=== PATIENT | female | born 1975 | race Caucasian/White ===

== ENCOUNTER 2018-04-04 14:18 | Emergency (ER) | payer MEDICAID ==
[~2018-04-04] VITALS: Ht 172.7 cm; Wt 64.3 kg
[2018-04-04] MEDS ORDERED: MONT5TAB14 PO (14:56)
[2018-04-04] MEDS ORDERED: CITA-311 PO (14:56)
[2018-04-04] MEDS ORDERED: ZOLP10TA5 PO (14:56)
[2018-04-04] MEDS ORDERED: ARIP5TAB4 PO (14:56)
[2018-04-04 15:04] LABS: BASOPHILS % (AUTO) 0.3 % (0-1); EOSINOPHILS # (AUTO) 0.1 X10'3 (0-0.9); EOSINOPHILS % (AUTO) 1.8 % (0-6); HEMATOCRIT 45.6 % (35.0-45.0); HEMOGLOBIN 14.9 g/dl (12.0-16.0); LYMPHOCYTES # (AUTO) 1.7 X10'3 (1.1-4.8); LYMPHOCYTES % (AUTO) 28.9 % (21-51); MEAN CORPUSCULAR HEMOGLOBIN 31.1 PG (27.0-31.0); MEAN CORPUSCULAR HGB CONC 32.7 g/dL (33.0-36.5); MEAN CORPUSCULAR VOLUME 95.1 FL (78-98); MEAN PLATELET VOLUME 8.3 FL (7.4-10.4); MONOCYTES # (AUTO) 0.9 X10'3 (0-0.9); MONOCYTES % (AUTO) 14.8 % (2-12); NEUTROPHILS # (AUTO) 3.2 X10'3 (1.8-7.7); NEUTROPHILS % (AUTO) 54.2 % (42-75); PLATELET COUNT 233 X10'3 (140-440); RED BLOOD COUNT 4.79 X10'6 (4.20-5.60); RED CELL DISTRIBUTION WIDTH 13.7 % (11.5-14.5); WHITE BLOOD COUNT 5.9 X10'3 (4.5-11.0)
[2018-04-04 15:08] LABS: CLARITY,URINE SLIGHTLY CLOUDY (Clear); COLOR,URINE STRAW (Yellow); GLUCOSE, URINE NEGATIVE (Neg); KETONES,URINE NEGATIVE (Neg); LEUKOCYTE ESTERASE ,URINE TRACE (Neg); NITRITES, URINE NEGATIVE (Neg); OCCULT BLOOD,URINE MODERATE (Neg); PH,URINE 7.5 (4.8-8.0); PROTEIN,URINE NEGATIVE (Neg); URINE HCG NEGATIVE (NEG); UROBILINOGEN,URINE 0.2 E.U/dL (0.2-1.0)
[2018-04-04] MEDS ORDERED: MONT10TA24 PO (15:08)
[2018-04-04] MEDS ORDERED: ALBU18HF2 IH (15:08)
[2018-04-04] MEDS ORDERED: IBUP-1986 PO (15:08)
[2018-04-04 15:19] LABS: URINE AMPHETAMINE SCREEN NEGATIVE (Neg); URINE BARBITUATE SCREEN NEGATIVE (Neg); URINE BENZODIAZEPINES SCREEN NEGATIVE (Neg); URINE CANNABINOID SCREEN NEGATIVE (Neg); URINE COCAINE SCREEN NEGATIVE (Neg); URINE METHADONE SCREEN NEGATIVE (Neg); URINE OPIATE SCREEN NEGATIVE (Neg); URINE PHENCYCLIDINE SCREEN NEGATIVE (Neg)
[2018-04-04] MEDS ORDERED: LORazepam 0.5 MG tablet PO ONE (15:20)
[2018-04-04] MEDS ORDERED: LORazepam 1 MG tablet PO ONE (15:20)
[2018-04-04 15:21] LABS: ALANINE AMINOTRANSFERASE 23 U/L (12-78); ALBUMIN 4.5 G/DL (3.4-5.0); ALBUMIN/GLOBULIN RATIO 1.2 (1.1-1.5); ALKALINE PHOSPHATASE 40 IU/L (46-116); ANION GAP 9 (8-16); ASPARTATE AMINO TRANSFERASE 21 U/L (10-37); BILIRUBIN,TOTAL 0.2 MG/DL (0.1-1.0); BLOOD UREA NITROGEN 8 MG/DL (7-18); BUN/CREATININE RATIO 12.1 (6.6-38.0); CALCIUM 9.2 MG/DL (8.5-10.1); CHLORIDE 104 MMOL/L (99-107); CREATININE 0.66 MG/DL (0.40-0.90); GLUCOSE 80 MG/DL (70-104); POTASSIUM 3.8 MMOL/L (3.5-5.1); SODIUM 140 MMOL/L (135-145); TOTAL CARBON DIOXIDE 26.9 MMOL/L (24-32); TOTAL PROTEIN 8.4 G/DL (6.4-8.2); eGFR > 90 ML/MIN
[2018-04-04 15:25] LABS: UA COLLECTION TYPE CLN CATCH MIDSTREAM
[2018-04-04 15:27] LABS: BACTERIA,URINE 1+ /HPF (Neg); RBC,URINE 0-2 /HPF (0-2); SQUAMOUS EPITHELIAL CELL,UR MODERATE /LPF (FEW)
[2018-04-04 15:31] LABS: ETHANOL < 0.010 GM/DL (0.0-0.010)
[2018-04-04] MEDS ORDERED: sulfamethoxazole/trimethoprim DS (800/160mg) tablet PO SCH (15:35)
[2018-04-04] MEDS ORDERED: sulfamethoxazole/trimethoprim DS (800/160mg) tablet PO ONE (15:35)
[2018-04-04] MEDS: sulfamethoxazole/trimethoprim DS (800/160mg) tablet PO SCH (15:50)
--- NOTE | 2018-04-04 18:56 | NUR ---
RECVD REPORT FROM PREM KEYS, PT ARRIVED IN OVERFLOW, AT BEDSIDE.
--- NOTE | 2018-04-04 20:04 | NUR ---
PT STATES SHE IS HERE FOR ONGOING S/I, W/PLAN TO OD ON ETOH AND PILLS SHE HAS AT HOME. REPORTS PRIOR S/I ATTEMPTS AND STATES SHE WAS DIAGNOSED W/DEPRESSION, BUT NOW HER DIAGNOSIS IS BEING CHANGED TO BIPOLAR D/O. PT HAS INCREASING THOUGHTS OF S/I HER MEDICATION HAS BEEN BEING ADJUSTED ALONG W/RECENT DIAGNOSIS CHANGE. PT IS DEPRESSSED, ANXIOUS, TEARFUL. PT STATES HAS RECENTLY STARTED SMOKING AGAIN AND USES A PACK Q2-3 DAYS. PT REPORTS ASTHMA AND RECENT COUGH. PTS REMAINS AT BEDSIDE.
--- NOTE | 2018-04-04 20:22 | NUR ---
PT IS HAVING TELEPSYCHE EVAL
[2018-04-04] MEDS ORDERED: montelukast 10mg tablet PO SCH (21:00)
[2018-04-04] MEDS ORDERED: aripiprazole 5mg tablet PO SCH (21:00)
[2018-04-04] MEDS ORDERED: CITALOpram 10mg tablet PO SCH (21:00)
[2018-04-04] MEDS ORDERED: albuterol 2.5 MG/3 ML nebule NEB PRN (22:05)
[2018-04-04] MEDS ORDERED: zolpidem 5mg tablet PO PRN (22:10)
[2018-04-04] MEDS ORDERED: ibuprofen 200mg tablet PO PRN (22:10)
--- NOTE | 2018-04-04 22:50 | NUR ---
PT RECVD EVENING MEDS, MED COMPLIANT, INQUIRED ABOUT 5150 PROCESS. PT IS SITTING IN BED RESTING EYES CLOSED.
--- NOTE | 2018-04-05 01:28 | NUR ---
PT IS LAYING IN BED SLEEPING RR EVEN AND UNLABORED NO S/S DISTRESS.
--- NOTE | 2018-04-05 03:17 | NUR ---
PT IS LAYING ON HER RIGHT SIDE SLEEPING RR EVEN AND UNLABORE NO S/S DISTRESS.
[2018-04-05] MEDS ORDERED: LORazepam 1 MG tablet PO ONE ×3 (05:15→15:30)
--- NOTE | 2018-04-05 05:30 | NUR ---
PT AWAKE SITTING UP IN BED, REPORTS ANXIETY, PT WAS GIVEN ATIVAN PRN.
--- NOTE | 2018-04-05 06:48 | NUR ---
Nursing Note: Pt sleeping, respirations even and unlabored, no S&S of distress, will continue to monitor.
[2018-04-05] MEDS ORDERED: nicotine 7mg patch - 24hr TD SCH (08:00)
[2018-04-05] MEDS: sulfamethoxazole/trimethoprim DS (800/160mg) tablet PO SCH (08:31)
--- NOTE | 2018-04-05 08:58 | NUR ---
Nursing Note: Pt requested phone so she could call her work and tell them she would not be there. Pt sitting on the edge of her bed, talking on the phone. No S&S of distress, respirations even and unlabored, will continue to monitor.
--- NOTE | 2018-04-05 10:30 | NUR ---
Nursing Note: Pt pacing at bedside. Notified ROB Jacobson that pt reports anxiety. Respirations even and unlabored, will continue to monitor.
--- NOTE | 2018-04-05 12:33 | NUR ---
Nursing Note: Pt laying in bed on L side, eyes closed, no S&S of distress, respirations even and unlabored, will continue to monitor.
--- NOTE | 2018-04-05 14:23 | NUR ---
Nursing Note: Pt standing beside her bed. She reports anxiety. Will continue to monitor.
--- NOTE | 2018-04-05 15:45 | NUR ---
Nursing Note: Pt exhibiting signs of anxiety, notified MD and received order for Ativan 1 mg. Will continue to monitor.
--- NOTE | 2018-04-05 16:58 | NUR ---
Pt transferred to [facility] at 1600. Pt taken via wheelchair escorted by ERICA Marvin. All possessions sent with pt. Pt given opportunity to ask question about transfer. No S&S of distress.
[2018-04-05 17:04] VITALS: BP 108/73
[2018-04-05] MEDS ORDERED: BACDS PO (17:26)
== END 2018-04-05 16:00 ==
LOC: ER 14:19
DX: R45.851 Suicidal ideations (principal); F32.9 Major depressive disorder, single episode, unspecified; N39.0 Urinary tract infection, site not specified; Z79.899 Other long term (current) drug therapy
CPT/HCPCS: 36415; 80053; 80305; 80320; 81001; 81025; 84443; 85025; 87088; 99285

== ENCOUNTER 2018-04-05 14:45 | Inpatient (IN) | payer MEDICAID ==
[~2018-04-05] VITALS: Ht 172.7 cm; Wt 63.5 kg
[~2018-04-05 14:45] MED LIST: ALBU18HF2 IH; ARIP5TAB4 PO; CITA-311 PO; IBUP-1986 PO; MONT10TA24 PO; ZOLP10TA5 PO
[2018-04-05] MEDS ORDERED: magnesium hydroxide 30ml (MOM) UD suspension PO PRN (15:50)
[2018-04-05] MEDS ORDERED: tuberculin, purif. prot. deriv. 5 units/0.1ml ID ONE (15:50)
[2018-04-05] MEDS ORDERED: acetaminophen 325mg tablet PO PRN ×2 (15:50)
[2018-04-05] MEDS ORDERED: mag hydrox/Alum hydrox/simeth 30ml oral suspension PO PRN (15:50)
--- NOTE | 2018-04-05 16:10 | NUR ---
Pt admitted at 1610 from emergency department for depression. Pt was sent to ER by her therapist. Pt has been battling depression for years but feeling worse last couple days. PT had some medications adjusted recently and placed on Abilify. Pt states recently being under a lot of stress. PT states she usually struggles with depression but feels worse. Pt planned to drink ETOH and take overdose of medications. Pt states she already had the medications stashed. Pt escorted to [facility] via wheelchair with security. Pt oriented to the unit. Pt has history of asthma, bipolar and back pain. Addendum: 04/05/18 at 1737 by Yon Dougherty RN (Coop) Admit note:
[2018-04-05 16:34] VITALS: BP 121/82
[2018-04-05] MEDS ORDERED: BACDS PO (17:26)
[2018-04-05] MEDS: nicotine 7mg patch - 24hr TD SCH (17:34)
[2018-04-05 19:00] VITALS: BP 108/75
[2018-04-05] MEDS: sulfamethoxazole/trimethoprim DS (800/160mg) tablet PO SCH (20:38)
[2018-04-05] MEDS: montelukast 10mg tablet PO SCH (20:38)
[2018-04-05] MEDS: zolpidem 5mg tablet PO PRN (20:39)
[2018-04-05] MEDS: LORazepam 1 MG tablet PO PRN (20:42)
[2018-04-05] MEDS ORDERED: aripiprazole 5mg tablet PO SCH (21:00)
[2018-04-05] MEDS ORDERED: CITALOpram 10mg tablet PO SCH (21:00)
--- NOTE | 2018-04-06 01:02 | NUR ---
Chief Complaint Legal hold: 5150 Client on involuntary status for DTS Report received from Марина KEYS Why are they here: Pt admitted from emergency department for depression. Pt was sent to ER by her therapist. Pt has been battling depression for years but feeling worse last couple days. PT had some medications adjusted recently and placed on Abilify. Pt states recently being under a lot of stress. Pt had mentioned to therapist getting her finances in order w/plan to drink ETOH and take overdose of medications. Pt states she already had the medications stashed. Pt reports she was diagnosed w/Depression but Bipolar is now being considered and she has been undergoing a medication adjustment. Diagnosis/presenting symptoms: Depression, anxiety, pt reports per ER Doctors note hx of 'anger issues" and "flare ups" of anger. Assessment What has happened this shift: Pt was sitting in bed at change of shift. 1:1 assessment completed at bedside. Pt denies s/i now, continues to have depression and anxiety but is inquiring about the process here and wondering when she can go home. Encouraged pt to make good use of time here, to attend and participate in groups and get rest and eat well while meds are adjusted. Pt slept about 6 hours in the ER overflow last night and states appetite is good. She has some back pain she attributes to the beds here. Showed pt how to adjust her bed for comfort. Pt spent evening visiting w/her before going to bed. S/I, H/I: pt denies A/VH: denies Sleep: reports slept well last night ADL's: independent Group attendance: pt arrived to late to participate in groups today Were meds taken: yes Any med S/E: None reported or observed Mental Status Exam Appearance: Adequately groomed and appropriately dressed Eye contact: good Behavior: cooperative, appropriate Speech: WNL Mood: depressed Affect: constricted Thought process: linear Thought Content: pt is inquiring about the process and being on a 5150 Cognition: intact Insight: good Judgment: fair Interventions PRN's used: Ambien for sleep and Ativan for anxiety Therapeutic interventions: 1:1 assessment, Q15 minute checks for safety, therapeutic listening Restraints/seclusion/emergency medication: none Justification of Continued Inpatient Treatment: Evaluation of symptoms, medication stabilization, patient safety.
[2018-04-06] MEDS: LORazepam 1 MG tablet PO PRN ×2 (07:17→13:45)
[2018-04-06] MEDS: sulfamethoxazole/trimethoprim DS (800/160mg) tablet PO SCH ×2 (07:17→20:29)
[2018-04-06] MEDS: nicotine 7mg patch - 24hr TD SCH (07:20)
[2018-04-06 07:32] LABS: CHOLESTEROL 172 MG/DL (0-200); HDL CHOLESTEROL 85 MG/DL (35-60); LDL CHOLESTEROL 80 MG/DL (50-100); TRIGLYCERIDES 63 MG/DL (20-135)
[2018-04-06 07:42] LABS: HEMOGLOBIN A1C 5.6 % (4.5-6.2)
[2018-04-06 07:46] VITALS: BP 108/77
[2018-04-06] MEDS ORDERED: tuberculin, purif. prot. deriv. 5 units/0.1ml ID ONE (10:00)
--- NOTE | 2018-04-06 16:03 | NUR ---
Nursing Progress Note: Chief Complaint: Depression with SI Legal hold: 5150 Client on involuntary status for DTS Report received from Donna KEYS Why are they here: Pt admitted from emergency department for depression. Pt was sent to ER by her therapist. Pt has been battling depression for years but feeling worse last couple days. PT had some medications adjusted recently and placed on Abilify. Pt states recently being under a lot of stress. Pt had mentioned to therapist getting her finances in order w/plan to drink ETOH and take overdose of medications. Pt states she already had the medications stashed. Pt reports she was diagnosed w/Depression but Bipolar is now being considered and she has been undergoing a medication adjustment. Diagnosis/presenting symptoms: Depression, anxiety, pt reports per ER Doctor"s note Hx of 'anger issues" and "flare ups" of anger. Assessment What has happened this shift: Pt rates her depression today at a 7/10, hesitated and thought about the SI question, then stated she wasn't really having too much. When asked if she had a plan, she responded "no," then said "you all already know what the plan was." Pt requested a prn Ativan this am at 0717 for increased anxiety, pt out of room for meals and groups, had another episode of increased anxiety at 1345, again given prn Ativan. Around 1430, tech reported that the pt had been vomiting in the bathroom due to elevated anxiety. Notified psychiatrist who stated he was planning on speaking with the pt again today to discuss possible med changes to help with her anxiety, something other than Ativan. Went to speak with the pt, found her lying quietly in her bed, pt stated that she thinks she ate her lunch too fast and had been nervous after meeting with psychiatrist. Stated she was just going to rest for awhile and that she would be fine. Discussed psychiatrist's plan to meet with her again to discuss medication adjustment, pt receptive to the idea. Hospitalist Dr Garcia came to see the pt and instructed to continue PO ABX for UTI. Pt also has a new order for [employer]. Pt mentioned that she was premenopausal, her periods are irregular and her therapist suggested she have hormone testing done to determine if hormones could be contributing to mood instability, psychiatrist aware. S/I, H/I: Pt wishy-washy re: SI, though does seem to be having some suicidal ideation, denies HI A/VH: Pt denies Sleep: Slept per noc shift report ADL's: Independent Group attendance: attended groups Were meds taken: Yes Any med S/E: None reported or observed Mental Status Exam Appearance: Neat, clean, appears tense/uncomfortable being on the unit Eye contact: Good Behavior: Nervous, cooperative Speech: clear, audible Mood: Anxious Affect: tense, anxious Thought process: Organized Thought Content: Pt fixated on feeling anxious Cognition: A/O X 4 Insight: Fair Judgment: Fair Interventions PRN's used: Ativan 1 mg Therapeutic interventions: 1:1 assessment, therapeutic conversation, medication administration/monitoring, relaxation techniques, distraction, Q 15 minute checks Restraints/seclusion/emergency medication: None Justification of Continued Inpatient Treatment: Pt suicidal with a plan, major anxiety, needs stabilization/medication adjustment in a safe, therapeutic environment. Addendum: 04/06/18 at 1701 by Cassie Camilo RN ([place]) Psychiatrist D/c'd Ativan and ordered Clonidine 0.1 mg once now and Clonidine 0.1 mg PO Q 6H prn anxiety/agitation.
[2018-04-06] MEDS ORDERED: cloNIDine 0.1 mg tablet PO ONE (16:55)
[2018-04-06 17:06] VITALS: BP 117/82
[2018-04-06 19:00] VITALS: BP 108/72
[2018-04-06] MEDS: montelukast 10mg tablet PO SCH (20:30)
[2018-04-06] MEDS: zolpidem 5mg tablet PO PRN (20:35)
[2018-04-06] MEDS: aripiprazole 5mg tablet PO SCH (20:35)
[2018-04-06] MEDS: lactobacillus rhamnosus 10,000 MMU CELLS/CAPSULE PO SCH (20:35)
[2018-04-06] MEDS: albuterol 2.5 MG/3 ML nebule NEB PRN (20:55)
--- NOTE | 2018-04-06 21:42 | NUR ---
Nursing Progress Note: Chief Complaint: Depression with SI Legal hold: 5150 Client on involuntary status for DTS Report received from Howard KEYS Why are they here: Pt admitted from emergency department for depression. Pt was sent to ER by her therapist. Pt has been battling depression for years but feeling worse last couple days. PT had some medications adjusted recently and placed on Abilify. Pt states recently being under a lot of stress. Pt had mentioned to therapist getting her finances in order w/plan to drink ETOH and take overdose of medications. Pt states she already had the medications stashed. Pt reports she was diagnosed w/Depression but Bipolar is now being considered and she has been undergoing a medication adjustment. Diagnosis/presenting symptoms: Depression, anxiety, pt reports per ER Doctor"s note Hx of 'anger issues" and "flare ups" of anger. Assessment What has happened this shift: Pt was laying in bed at change of shift. 1:1 assessment completed at bedside. Pt is depressed, denies s/i, states "I don't think so, not right now." Pt is anxious about when she can go home and asking when she can leave. Explained there are med changes today and the doctor will likely want to monitor the effects before he makes a decision of when she can go home. Pt is understanding. Reviewed med changes w/pt. PPD was placed this evening. Pt reports she is sleeping well and wakes around 4am every day but would like to sleep more. Appetite is good but states she ate too much too fast during day shift but stomach is not bothering her now. Pt spent evening visiting w/her and participated playing board games w/other patients. Pt is med compliant. S/I, H/I: Denies s/i, denies h/i A/VH: Pt denies Sleep: Sleep is good, feels like she wakes too early ADL's: Independent Group attendance: no evening groups Were meds taken: Yes Any med S/E: None reported or observed Mental Status Exam Appearance: adequately groomed and dressed Eye contact: Good Behavior: Nervous, cooperative Speech: WNL Mood: Anxious, depressed Affect: tense, anxious Thought process: Linear Thought Content: Pt anxious to go home Cognition: A/O X 4 Insight: Fair Judgment: Fair Interventions PRN's used: Ativan 1 mg Therapeutic interventions: 1:1 assessment, therapeutic conversation, medication administration/monitoring, Q 15 minute checks Restraints/seclusion/emergency medication: None Justification of Continued Inpatient Treatment: Pt suicidal with a plan, major anxiety, needs stabilization/medication adjustment in a safe, therapeutic environment Addendum: 04/07/18 at 0418 by Alondra Guillen RN ATIVAN WAS DC'D. PT WAS NOT GIVEN ATIVAN PRN. Addendum: 04/07/18 at 0424 by Alondra Guillen RN PRNS GIVEN THIS SHIFT: RT CHADD ADMINISTERED ALBUTEROL TX FOR SOB.
[2018-04-07] MEDS: sulfamethoxazole/trimethoprim DS (800/160mg) tablet PO SCH ×2 (07:51→20:32)
[2018-04-07] MEDS: lactobacillus rhamnosus 10,000 MMU CELLS/CAPSULE PO SCH ×2 (07:51→20:32)
[2018-04-07] MEDS: ibuprofen tablet 400 MG TABLET PO PRN (07:51)
[2018-04-07] MEDS: nicotine 7mg patch - 24hr TD SCH (07:54)
[2018-04-07] MEDS: cloNIDine 0.1 mg tablet PO PRN ×2 (07:54→15:29)
[2018-04-07 08:00] VITALS: BP 113/73
--- NOTE | 2018-04-07 14:41 | NUR ---
Chief Complaint: Depression with SI Legal hold: 5150 Client on involuntary status for DTS Report received from Donna KEYS Why are they here: Pt admitted from emergency department for depression. Pt was sent to ER by her therapist. Pt has been battling depression for years but feeling worse last couple days. PT had some medications adjusted recently and placed on Abilify. Pt states recently being under a lot of stress. Pt had mentioned to therapist getting her finances in order w/plan to drink ETOH and take overdose of medications. Pt states she already had the medications stashed. Pt reports she was diagnosed w/Depression but Bipolar is now being considered and she has been undergoing a medication adjustment. Diagnosis/presenting symptoms: Depression, severe anxiety, pt reports per ER Doctor"s note Hx of 'anger issues" and "flare ups" of anger. Assessment What has happened this shift: Pt states her depression has improved somewhat today, rated it at a 5/10, denies SI, continues to have episodes of increased anxiety, rated her anxiety at a 7/10 before medicated with prn Clonidine 0.1 mg at 0754. Pt states she just wants to go home, states she no longer plans on OD'ing with alcohol and pills. No c/o SOB today, lungs were clear throughout. Pt observed playing [employer] in the community room with a female peer. S/I, H/I: Pt denies A/VH: Pt denies Sleep: Slept per noc shift report ADL's: Independent Group attendance: Did not attend am group due to increased anxiety Were meds taken: Yes Any med S/E: None reported or observed Mental Status Exam Appearance: Neat, clean Eye contact: Good Behavior: cooperative Speech: clear, audible Mood: Anxious Affect: anxious Thought process: Organized Thought Content: Pt states she just wants to go home Cognition: A/O X 4 Insight: Fair Judgment: Fair Interventions PRN's used: Motrin 800 mg at 0751, Clonidine 0.1 mg at 0754 Therapeutic interventions: 1:1 assessment, therapeutic conversation, medication administration/monitoring, relaxation techniques, distraction, Q 15 minute checks Restraints/seclusion/emergency medication: None Justification of Continued Inpatient Treatment: Pt has some major life stressors, had a plan to commit suicide, life stressors unresolved, pt having episodes of severe anxiety,appears to be minimizing other symptoms, needs stabilization/medication adjustment in a safe, therapeutic environment.
[2018-04-07 15:28] VITALS: BP 117/66
--- NOTE | 2018-04-07 17:41 | NUR ---
Pt c/o an episode of dizziness at 1730, states she had to sit down. Checked VS BP was 122/71, P 86. Pt has an order for Clonidine 0.1 mg PO Q 6H prn anxiety, she was given this today at 0754 & 1529. BP tends to run on the low side. Initially BP was 99/67 this am, rechecked BP when pt requested the med and it was up to 113/73 at that time. Notified P.Montrell Rivera of potential side effect of Clonidine. Pt expressed concern as she states she doesn't want to go home on a med she has to monitor her blood pressure on. P.A. stated he will discuss with psychiatrist. Pt has an new order for Depakote 500 mg PO Q HS to start tonight.
[2018-04-07] MEDS: albuterol 2.5 MG/3 ML nebule NEB PRN (18:21)
[2018-04-07 19:00] VITALS: BP 93/61
[2018-04-07] MEDS: zolpidem 5mg tablet PO PRN (20:32)
[2018-04-07] MEDS: montelukast 10mg tablet PO SCH (20:32)
[2018-04-07] MEDS: aripiprazole 5mg tablet PO SCH (20:32)
[2018-04-07] MEDS ORDERED: divalproex sod 250mg ER (24-hour) tablet PO SCH (21:00)
--- NOTE | 2018-04-08 05:08 | NUR ---
RN Progress Note What happened this shift? Pt stated that she was feeling good but anxious. Denies SI. Pt stated that she had a good day and got to spend time with her . Pt requested printouts of her medications because she wanted to know more about what she is taking. Mood: anxious Affect: anxious, nervous Thought: linear Behavior: pleasant, cooperative PRN: Ambien 10mg at 2031
[2018-04-08] MEDS: cloNIDine 0.1 mg tablet PO PRN (07:10)
[2018-04-08 07:14] VITALS: BP 117/76
[2018-04-08] MEDS: lactobacillus rhamnosus 10,000 MMU CELLS/CAPSULE PO SCH (07:50)
[2018-04-08] MEDS: ibuprofen tablet 400 MG TABLET PO PRN (07:50)
[2018-04-08] MEDS: nicotine 7mg patch - 24hr TD SCH (07:51)
[2018-04-08] MEDS: sulfamethoxazole/trimethoprim DS (800/160mg) tablet PO SCH (07:57)
[2018-04-08] MEDS ORDERED: ZOLP10TA PO (15:57)
[2018-04-08] MEDS ORDERED: NICO-630 TD (15:57)
[2018-04-08] MEDS ORDERED: CLON0.1T20 PO (15:57)
[2018-04-08] MEDS ORDERED: ARIP10TA17 PO (15:57)
[2018-04-08] MEDS ORDERED: LACT1CAP26 PO (15:57)
[2018-04-08] MEDS ORDERED: DIVA250T8 PO (15:57)
--- NOTE | 2018-04-08 16:53 | NUR ---
1435 Discharge Note: Chief Complaint: Depression with SI Legal hold: 5150 ends today Client on involuntary status for DTS Report received from LUDMILA Dye with the use of [facility] Why are they here: Pt admitted from emergency department for depression. Pt sent to ER by her therapist. Pt has been battling depression for years feeling worse last couple days. Patient had some medications adjusted recently and placed on Abilify. She states recently under a lot of stress. Pt had mentioned to therapist getting her finances in order w/plan to drink ETOH and take an overdose of medications. Pt states the pills are hidden at home. Pt reports she was diagnosed w/depression but bipolar is now being considered and she has been undergoing a medication adjustment. Diagnosis/presenting symptoms: Depression, anxiety, pt reports per ER Doctor"s note Hx of 'anger issues" and "flare ups" of anger. Assessment What has happened this shift: Pt presents as anxious over the end of her 5150 and the possibility she might be placed on a 5250. Pt would like to go home. She has been on and off of the phone with her throughout the morning. In the afternoon pt and her met with Dr. Matias to discuss a safe discharge plan. S/I, H/I: Denies thoughts or plan A/VH: Denies Sleep: Does not sleep during the day; reports she did not sleep well last night "I need to be at home." ADL's: Independent Group attendance: Y Were Meds taken: Y Any med S/E: None reported or observed Mental Status Exam Appearance: adequately groomed and dressed Eye contact: good Behavior: anxious today Speech: WNL Mood: Anxious, depressed Affect: anxious Thought process: Linear Thought Content: Pt anxious to go home Cognition: A/Ox4 Insight: Fair Judgment: Fair Interventions PRN's used: Ativan 1 mg Therapeutic interventions: 1:1 assessment, provided active listening, establish rapport; medication administration w/monitoring and educations as requested; monitored; encouraged group attendance and participation; q 15 minute safety checks Restraints/seclusion/emergency medication: N/A Justification of Continued Inpatient Treatment: Pt denies SI or plan and would like to go home; she continues to present with some anxiety. Addendum: 04/08/18 at 1709 by Марина Matias RN All personal belongings inventoried and returned to pt. Pt's inhaler returned from the pharmacy to the pt. Pt left with her to return home. Pt will follow up with outpt. services.
== END 2018-04-08 16:35 | disposition home or self-care (01) | DRG 751 ==
LOC: ADULT MH 14:45
PROVIDERS: ADMIT Psychiatry & Neurology Psychiatry; ATTEND Psychiatry & Neurology Psychiatry
DX: F33.2 Major depressive disorder, recurrent severe without psychotic features (principal); R45.851 Suicidal ideations; E11.9 Type 2 diabetes mellitus without complications; F15.10 Other stimulant abuse, uncomplicated; F19.10 Other psychoactive substance abuse, uncomplicated; G89.29 Other chronic pain; M54.9 Dorsalgia, unspecified; M77.10 Lateral epicondylitis, unspecified elbow; F12.10 Cannabis abuse, uncomplicated; I10 Essential (primary) hypertension; K21.9 Gastro-esophageal reflux disease without esophagitis; N39.0 Urinary tract infection, site not specified; Z56.0 Unemployment, unspecified; Z79.899 Other long term (current) drug therapy; Z81.8 Family history of other mental and behavioral disorders
CPT/HCPCS: 36415; 80061; 83036; 87070; 94640; 94760

== ENCOUNTER 2024-12-30 10:14 | Outpatient (CLI) | payer MEDICAID ==
[~2024-12-30 10:14] MED LIST changes: +ARIP10TA87 PO; -ARIP5TAB4 PO; -CITA-311 PO; +CLON0.1T2 PO; +DIVA250T8 PO; +LACT1CAP26 PO; +MONT-40 PO; -MONT10TA24 PO; +NICO-630 TD; +SULF1TAB45 PO; +ZOLP-679 PO; -ZOLP10TA5 PO
--- NOTE | 2024-12-30 11:13 | RADIOLOGY REPORT ---
PROCEDURE: MR MRI C SPINE Indication: CERVICALGIA;RADICULOPATHY, CERVICAL REGION COMPARISON: None TECHNIQUE: Multiplanar multisequence images of the the cervical spine are obtained. FINDINGS: The cervical vertebral body heights are maintained. Moderate multilevel disc space narrowing and desiccation. Reversal normal cervical spine curvature. No prevertebral edema. Atlantooccipital, atlantoaxial articulations intact. C2-3: Small disc osteophyte complex. No spinal canal, neural foraminal stenosis. C3-4: Small disc osteophyte complex. Narrowing of the ventral and dorsal CSF spaces. Thecal sac measures 10 mm AP. No spinal canal stenosis. Mild bilateral neural foraminal stenosis. C4-5: Disc osteophyte complex narrowing the ventral and dorsal CSF spaces. Thecal sac measures 9 mm AP. Mild spinal canal stenosis. Moderate to severe left and [id number] right neural foraminal stenosis. C5-6: Disc osteophyte complex nearly effacing the ventral and dorsal CSF spaces. Thecal sac measures 7 mm AP. Moderate spinal canal stenosis. Severe bilateral neural foraminal stenosis. C6-7: Disc osteophyte complex narrowing the ventral and dorsal CSF spaces. Thecal sac measures 8.5 mm AP. [id number] spinal canal stenosis. Moderate to severe left and moderate right neural foraminal stenosis. C7-T1: Small disc osteophyte complex. No spinal canal stenosis. Mild bilateral neural foraminal stenosis IMPRESSION: Moderate cervical degenerative disc disease. Moderate spinal canal stenosis at C5-6. [id number] spinal canal stenosis C6-7. Mild spinal canal stenosis C4-5. Multilevel moderate to severe neural foraminal stenosis as described.
== END 2024-12-30 23:59 | disposition home or self-care (01) ==
LOC: MRI02 10:14
PROVIDERS: ATTEND Nurse Practitioner Adult Health
DX: M50.123 Cervical disc disorder at C6-C7 level with radiculopathy (principal); M48.03 Spinal stenosis, cervicothoracic region; M43.26 Fusion of spine, lumbar region; M25.78 Osteophyte, vertebrae
CPT/HCPCS: 72141